=== PATIENT | female | born 1945 ===

== ENCOUNTER 2020-07-20 13:42 | Inpatient (IN) ==
[2020-07-20] MEDS ORDERED: niCARdipine INJ 25 MG in SODIUM CHLORIDE 0.9% 240 ML IV PRN (13:58)
[2020-07-20] MEDS ORDERED: cloNIDine 0.1 MG TABLET PO STA (14:17)
[2020-07-20 14:46] LABS: Basophils % 0.2 % (0.0-0.8); Hematocrit 37.2 VOL% (35.7-47.0); Hemoglobin 12.9 GM/DL (12.0-16.0); Immature Granulocytes % 1.3 %; Immature Granulocytes Absolute 0.22 #; Lymphocytes # 0.7 10*3/uL (1.4-4.0); Lymphocytes % 3.9 % (21.3-54.2); Mean Corpuscular HGB Conc 34.7 GM/DL (32-36); Mean Corpuscular Volume 84.9 FL (87-102); Mean Platelet Volume 11.4 FL (9.6-12.0); Neutrophils % 89.6 % (38.7-73.9); Platelet Count 132 T/CUMM (130-400); Red Blood Count 4.38 MC/CUMM (3.8-5.5); Red Cell Distribution Width 14.1 % (9.3-17.3); White Blood Count 17.5 T/CUMM (4-12)
[2020-07-20] MEDS ORDERED: ONDANSETRON 4 MG/2 ML VIAL IV PRN (14:55)
[2020-07-20] MEDS ORDERED: ALBUTEROL 2.5 MG/3 ML NEB RESP TX PRN (14:55)
[2020-07-20] MEDS ORDERED: AZITHROMYCIN INJ 500 MG in SODIUM CHLORIDE 0.9% 250 ML IV ONE (15:00)
[2020-07-20 15:21] LABS: INR 1.7; PT Patient Result 17.6 SECS (9.8-11.9)
[2020-07-20] MEDS ORDERED: niCARdipine 25 MG/10 ML VIAL IV ONE (15:53)
[2020-07-20 15:59] LABS: Band Neutrophils 1 % (0-10); Burr Cells 1+; Lymphocytes 4 % (20-55); Metamyelocytes 1 %; Microcytosis 1+; Segmented Neutrophils 93 % (50-85); Total Cells Counted 100; Toxic Granulation 1+
[2020-07-20 16:00] LABS: Platelet Estimate Decreased
[2020-07-20] MEDS: DEXAMETHASONE 4 MG/1 ML VIAL IV SCH (16:33)
[2020-07-20 16:42] LABS: Alanine Aminotransferase 33 U/L (13-56); Albumin 2.2 G/DL (3.4-5.0); Alkaline Phosphatase 178 U/L (45-117); Aspartate Amino Transferase 180 U/L (0-37); Blood Urea Nitrogen 52 MG/DL (7-18); Calcium 8.8 MG/DL (8.5-10.1); Estimated Glom Filtration Rate 25 ML/MIN; Ferritin 3215.4 ng/ml (8-252); Glucose 337 MG/DL (74-106); Osmolality,Calculated 303.5 MOS/KG (273-304); Total Protein 7.3 G/DL (6.4-8.3)
[2020-07-20] MEDS ORDERED: SODIUM BICARBONATE 50 MEQ/50 ML VIAL IV ONE (17:33)
[2020-07-20] MEDS ORDERED: guaiFENesin 200 MG/10 ML UDCUP PO PRN (17:54)
[2020-07-20] MEDS ORDERED: SODIUM CHLORIDE 0.9% 1,000 ML IV SCH (18:00)
[2020-07-20] MEDS: niCARdipine INJ 25 MG in SODIUM CHLORIDE 0.9% 240 ML IV PRN ×2 (18:12→23:05)
[2020-07-20] MEDS: SODIUM POLYSTYRENE SULFATE 15 GM/60 ML BOTTLE PO ONE ×2 (18:12→18:44)
[2020-07-20 18:18] LABS: ABG Base Excess -6.9 MMOL/L (-2.5-2.5); ABG HCO3 18.8 MMOL/L (20-26); ABG Oxygen Saturation 94.7 % (95-100); ABG PCO2 30.9 MM HG (35-48); ABG PO2 74.7 MM HG (80-95); ABG TCO2 15.4 MMOL/L (23-27)
[2020-07-20] MEDS ORDERED: SODIUM POLYSTYRENE SULFATE 15 GM/60 ML BOTTLE RECTAL ONE (19:36)
[2020-07-20] MEDS ORDERED: INSULIN GLARGINE 100 UNIT/ML SUBCUT SCH (21:00)
[2020-07-20] MEDS: ENOXAPARIN 40 MG/0.4 ML SYRINGE SUBCUT SCH (21:45)
[2020-07-20] MEDS: INSULIN LISPRO 100 UNIT/ML SUBCUT SCH (21:45)
[2020-07-20] MEDS: DOCUSATE SODIUM 100 MG CAPSULE PO SCH (22:00)
[2020-07-20] MEDS: carvediloL 6.25 MG TABLET PO SCH (23:10)
[2020-07-20] MEDS: ASCORBIC ACID 500 MG TABLET PO SCH (23:10)
[2020-07-20] MEDS: GABAPENTIN 100 MG CAPSULE PO SCH (23:10)
[2020-07-21 00:48] LABS: ABG Base Excess -6.5 MMOL/L (-2.5-2.5); ABG HCO3 19.1 MMOL/L (20-26); ABG Oxygen Saturation 93.2 % (95-100); ABG PH 7.385 (7.35-7.45); ABG PO2 67.3 MM HG (80-95); ABG TCO2 15.4 MMOL/L (23-27); Allen Test Positive; Pt O2 Delivery Device Other
[2020-07-21 03:54] LABS: Basophils % 0.2 % (0.0-0.8); Hematocrit 35.5 VOL% (35.7-47.0); Hemoglobin 11.8 GM/DL (12.0-16.0); Immature Granulocytes % 1.3 %; Immature Granulocytes Absolute 0.19 #; Lymphocytes # 0.6 10*3/uL (1.4-4.0); Lymphocytes % 4.3 % (21.3-54.2); Mean Corpuscular HGB Conc 33.2 GM/DL (32-36); Mean Corpuscular Volume 87.4 FL (87-102); Monocytes % 5.9 % (1.7-12.7); NRBC # 0.02 10*3/uL; Neutrophils % 88.3 % (38.7-73.9); Platelet Count 112 T/CUMM (130-400); Red Blood Count 4.06 MC/CUMM (3.8-5.5); Red Cell Distribution Width 14.6 % (9.3-17.3); White Blood Count 14.3 T/CUMM (4-12)
[2020-07-21 04:17] LABS: Albumin 2.3 G/DL (3.4-5.0); Bilirubin,Total 1.6 MG/DL (0.2-1.0); Calcium 8.4 MG/DL (8.5-10.1); Total Protein 6.1 G/DL (6.4-8.3)
[2020-07-21 04:25] LABS: ABG Base Excess -4.6 MMOL/L (-2.5-2.5); ABG HCO3 20.6 MMOL/L (20-26); ABG Oxygen Saturation 96.8 % (95-100); ABG PCO2 29.3 MM HG (35-48); ABG PH 7.415 (7.35-7.45); ABG PO2 84.5 MM HG (80-95); ABG TCO2 16.6 MMOL/L (23-27)
[2020-07-21 04:37] LABS: Burr Cells Slight; Hypochromasia Slight; Microcytosis Slight; Ovalocytes Slight; Platelet Estimate Decreased
[2020-07-21] MEDS: ZINC GLUCONATE 50 MG TABLET PO SCH (08:16)
[2020-07-21] MEDS: CHOLECALCIFEROL 1,000 UNIT TABLET PO SCH (08:16)
[2020-07-21] MEDS: OMEPRAZOLE ODT 20 MG TABLET PO SCH (08:16)
[2020-07-21] MEDS: DOCUSATE SODIUM 100 MG CAPSULE PO SCH ×2 (08:16→20:33)
[2020-07-21] MEDS: AZITHROMYCIN 250 MG TABLET PO SCH (08:16)
[2020-07-21] MEDS: CETIRIZINE 10 MG TABLET PO SCH (08:16)
[2020-07-21] MEDS: GABAPENTIN 100 MG CAPSULE PO SCH ×3 (08:16→20:33)
[2020-07-21] MEDS: FLUoxetine 20 MG CAPSULE PO SCH (08:16)
[2020-07-21] MEDS: carvediloL 6.25 MG TABLET PO SCH ×2 (08:16→20:33)
[2020-07-21] MEDS: ASCORBIC ACID 500 MG TABLET PO SCH ×2 (08:16→20:33)
[2020-07-21] MEDS: DEXAMETHASONE 4 MG/1 ML VIAL IV SCH (08:17)
[2020-07-21] MEDS: TOLTERODINE LA 2 MG CAPSULE PO SCH (09:46)
[2020-07-21] MEDS ORDERED: SODIUM CHLORIDE 0.9% 1,000 ML IV SCH (10:00)
[2020-07-21] MEDS: INSULIN LISPRO 100 UNIT/ML SUBCUT SCH ×4 (10:22→20:35)
[2020-07-21] MEDS: ZINC OXIDE PASTE 113 GM TUBE TOP SCH ×2 (10:56→20:33)
[2020-07-21] MEDS: SODIUM CHLORIDE 0.9% 1,000 ML IV SCH ×2 (11:47→20:22)
[2020-07-21 14:08] LABS: ABG Base Excess -5.6 MMOL/L (-2.5-2.5); ABG HCO3 19.4 MMOL/L (20-26); ABG Oxygen Saturation 83.9 % (95-100); ABG PCO2 36.2 MM HG (35-48); ABG PH 7.346 (7.35-7.45); ABG PO2 51.4 MM HG (80-95); ABG TCO2 20.5 MMOL/L (23-27)
[2020-07-21] MEDS ORDERED: SUCCINYLCHOLINE 200 MG/10 ML VIAL ONE (14:23)
[2020-07-21] MEDS ORDERED: ETOMIDATE 20 MG/10 ML VIAL IV ONE ×3 (14:23→14:36)
[2020-07-21] MEDS ORDERED: SUCCINYLCHOLINE 200 MG/10 ML VIAL IV ONE (14:36)
[2020-07-21 15:42] VITALS: BP 150/87
[2020-07-21 16:17] LABS: ABG Base Excess -6.3 MMOL/L (-2.5-2.5); ABG HCO3 18.9 MMOL/L (20-26); ABG Oxygen Saturation 72.3 % (95-100); ABG PCO2 42.3 MM HG (35-48); ABG PH 7.285 (7.35-7.45); ABG PO2 42.5 MM HG (80-95); ABG TCO2 18.5 MMOL/L (23-27)
[2020-07-21] MEDS ORDERED: GLUCAGON 1 MG VIAL IM PRN (17:15)
[2020-07-21] MEDS: fentaNYL INJ 1,250 MCG in SODIUM CHLORIDE 0.9% 225 ML IV PRN (20:27)
[2020-07-21] MEDS: ENOXAPARIN 40 MG/0.4 ML SYRINGE SUBCUT SCH (20:33)
[2020-07-21] MEDS: INSULIN GLARGINE 100 UNIT/ML SUBCUT SCH (20:33)
[2020-07-21] MEDS ORDERED: POTASSIUM CHLORIDE 20 MEQ/15 ML UDCUP NG ONE (21:24)
[2020-07-22] MEDS: INSULIN LISPRO 100 UNIT/ML SUBCUT SCH ×6 (00:05→22:22)
[2020-07-22] MEDS: SODIUM CHLORIDE 0.9% 1,000 ML IV SCH ×2 (03:35→04:26)
[2020-07-22 03:44] LABS: Allen Test Positive; Pt O2 Delivery Device Ventilator
[2020-07-22 03:45] LABS: ABG Base Excess -6.8 MMOL/L (-2.5-2.5); ABG HCO3 18.9 MMOL/L (20-26); ABG Oxygen Saturation 99.9 % (95-100); ABG PCO2 31.8 MM HG (35-48); ABG PH 7.356 (7.35-7.45); ABG TCO2 16.2 MMOL/L (23-27)
[2020-07-22 04:59] LABS: Basophils % 0.1 % (0.0-0.8); Hematocrit 32.5 VOL% (35.7-47.0); Hemoglobin 10.7 GM/DL (12.0-16.0); Immature Granulocytes % 1.7 %; Immature Granulocytes Absolute 0.29 #; Lymphocytes # 0.5 10*3/uL (1.4-4.0); Lymphocytes % 2.9 % (21.3-54.2); Mean Corpuscular HGB Conc 32.9 GM/DL (32-36); Mean Corpuscular Volume 88.8 FL (87-102); Monocytes % 5.8 % (1.7-12.7); NRBC # 0.03 10*3/uL; Neutrophils % 89.5 % (38.7-73.9); Platelet Count 105 T/CUMM (130-400); Red Blood Count 3.66 MC/CUMM (3.8-5.5); Red Cell Distribution Width 14.8 % (9.3-17.3); White Blood Count 17.4 T/CUMM (4-12)
[2020-07-22 05:07] LABS: Albumin 1.9 G/DL (3.4-5.0); Bilirubin,Total 0.9 MG/DL (0.2-1.0); Calcium 7.8 MG/DL (8.5-10.1); Osmolality,Calculated 328.7 MOS/KG (273-304); Total Protein 5.2 G/DL (6.4-8.3)
[2020-07-22 05:16] LABS: Band Neutrophils 2 % (0-10); Hypochromasia Slight; Lymphocytes 1 % (20-55); Segmented Neutrophils 96 % (50-85); Total Cells Counted 100
[2020-07-22 05:17] LABS: Acanthocytes Few; Microcytosis 1+; Platelet Estimate Decreased
[2020-07-22] MEDS: DOCUSATE SODIUM 100 MG CAPSULE PO SCH (08:41)
[2020-07-22] MEDS: MULTIVITAMIN (BEROCCA) TABLET PO SCH (08:41)
[2020-07-22] MEDS: CHOLECALCIFEROL 1,000 UNIT TABLET PO SCH (08:42)
[2020-07-22] MEDS: OMEPRAZOLE ODT 20 MG TABLET PO SCH (08:42)
[2020-07-22] MEDS: ASCORBIC ACID 500 MG TABLET PO SCH ×2 (08:42→22:20)
[2020-07-22] MEDS: ZINC GLUCONATE 50 MG TABLET PO SCH (08:42)
[2020-07-22] MEDS: FLUoxetine 20 MG CAPSULE PO SCH (08:43)
[2020-07-22] MEDS: AZITHROMYCIN 250 MG TABLET PO SCH (08:43)
[2020-07-22] MEDS: CETIRIZINE 10 MG TABLET PO SCH (08:43)
[2020-07-22] MEDS: GABAPENTIN 100 MG CAPSULE PO SCH ×3 (08:43→22:20)
[2020-07-22] MEDS: carvediloL 6.25 MG TABLET PO SCH ×2 (08:43→22:20)
[2020-07-22] MEDS: TOLTERODINE LA 2 MG CAPSULE PO SCH (08:44)
[2020-07-22] MEDS: DEXAMETHASONE 4 MG/1 ML VIAL IV SCH (08:44)
[2020-07-22] MEDS: ZINC OXIDE PASTE 113 GM TUBE TOP SCH ×2 (08:45→22:23)
[2020-07-22] MEDS: SODIUM BICARB INJ 50 MEQ in DEXTROSE 5% 1,000 ML IV SCH ×2 (11:59→22:38)
[2020-07-22] MEDS ORDERED: LORazepam 2 MG/1 ML VIAL IV ONE (20:56)
[2020-07-22] MEDS: DOCUSATE SODIUM 100 MG/10 ML UDCUP PO SCH (22:20)
[2020-07-22] MEDS: ALPRAZolam 0.25 MG TABLET PO PRN (22:20)
[2020-07-22] MEDS: ENOXAPARIN 40 MG/0.4 ML SYRINGE SUBCUT SCH (22:21)
[2020-07-22] MEDS: INSULIN GLARGINE 100 UNIT/ML SUBCUT SCH (22:21)
[2020-07-22] MEDS: fentaNYL INJ 1,250 MCG in SODIUM CHLORIDE 0.9% 225 ML IV PRN (22:38)
[2020-07-23] MEDS: INSULIN LISPRO 100 UNIT/ML SUBCUT SCH ×7 (01:01→23:35)
[2020-07-23 04:29] LABS: Allen Test Positive; Pt O2 Delivery Device Ventilator
[2020-07-23 04:30] LABS: ABG Base Excess -6.6 MMOL/L (-2.5-2.5); ABG HCO3 19.9 MMOL/L (20-26); ABG Oxygen Saturation 98.9 % (95-100); ABG PCO2 44.2 MM HG (35-48); ABG PH 7.272 (7.35-7.45); ABG PO2 337.3 MM HG (80-95); ABG TCO2 21.3 MMOL/L (23-27)
[2020-07-23 04:52] LABS: Basophils % 0.2 % (0.0-0.8); Hematocrit 32.4 VOL% (35.7-47.0); Hemoglobin 10.5 GM/DL (12.0-16.0); Immature Granulocytes % 3.3 %; Immature Granulocytes Absolute 0.63 #; Lymphocytes # 0.5 10*3/uL (1.4-4.0); Lymphocytes % 2.6 % (21.3-54.2); Mean Corpuscular HGB Conc 32.4 GM/DL (32-36); Mean Corpuscular Volume 89.5 FL (87-102); Monocytes % 4.8 % (1.7-12.7); NRBC # 0.02 10*3/uL; Neutrophils % 89.1 % (38.7-73.9); Platelet Count 97 T/CUMM (130-400); Red Blood Count 3.62 MC/CUMM (3.8-5.5); White Blood Count 18.8 T/CUMM (4-12)
[2020-07-23 05:17] LABS: Hypochromasia 1+; Lymphocytes 3 % (20-55); Segmented Neutrophils 93 % (50-85); Total Cells Counted 100
[2020-07-23 05:18] LABS: Acanthocytes Few; Microcytosis 1+; Platelet Estimate Decreased
[2020-07-23 05:24] LABS: Albumin 1.7 G/DL (3.4-5.0); Bilirubin,Total 0.4 MG/DL (0.2-1.0); Calcium 8.1 MG/DL (8.5-10.1); Osmolality,Calculated 327.7 MOS/KG (273-304); Total Protein 5.3 G/DL (6.4-8.3)
[2020-07-23] MEDS: DEXAMETHASONE 4 MG/1 ML VIAL IV SCH (08:30)
[2020-07-23] MEDS: ASCORBIC ACID 500 MG TABLET PO SCH ×2 (08:31→21:35)
[2020-07-23] MEDS: ALPRAZolam 0.25 MG TABLET PO PRN ×2 (08:31→21:42)
[2020-07-23] MEDS: carvediloL 6.25 MG TABLET PO SCH ×2 (08:31→21:38)
[2020-07-23] MEDS: CHOLECALCIFEROL 1,000 UNIT TABLET PO SCH (08:31)
[2020-07-23] MEDS: ZINC GLUCONATE 50 MG TABLET PO SCH (08:31)
[2020-07-23] MEDS: MULTIVITAMIN (BEROCCA) TABLET PO SCH (08:31)
[2020-07-23] MEDS: GABAPENTIN 100 MG CAPSULE PO SCH ×3 (08:31→21:35)
[2020-07-23] MEDS: CETIRIZINE 10 MG TABLET PO SCH (08:31)
[2020-07-23] MEDS: DOCUSATE SODIUM 100 MG/10 ML UDCUP PO SCH ×2 (08:31→21:35)
[2020-07-23] MEDS: FLUoxetine 20 MG CAPSULE PO SCH (08:32)
[2020-07-23] MEDS: OMEPRAZOLE ODT 20 MG TABLET PO SCH (08:32)
[2020-07-23] MEDS: AZITHROMYCIN 250 MG TABLET PO SCH (08:32)
[2020-07-23] MEDS: TOLTERODINE LA 2 MG CAPSULE PO SCH (08:33)
[2020-07-23] MEDS: fentaNYL INJ 1,250 MCG in SODIUM CHLORIDE 0.9% 225 ML IV PRN ×2 (09:50→23:31)
[2020-07-23] MEDS: SODIUM BICARB INJ 50 MEQ in DEXTROSE 5% 1,000 ML IV SCH ×2 (10:02→21:54)
[2020-07-23] MEDS: ZINC OXIDE PASTE 113 GM TUBE TOP SCH ×2 (10:06→21:36)
[2020-07-23] MEDS: ALBUMIN 25% 25 GM in PREMIX 1 EACH IV SCH (19:30)
[2020-07-23] MEDS: ENOXAPARIN 40 MG/0.4 ML SYRINGE SUBCUT SCH (21:35)
[2020-07-23] MEDS: INSULIN GLARGINE 100 UNIT/ML SUBCUT SCH (21:36)
[2020-07-24] MEDS: ALBUMIN 25% 25 GM in PREMIX 1 EACH IV SCH ×2 (02:31→14:05)
[2020-07-24] MEDS ORDERED: SODIUM CHLORIDE 0.9% 500 ML IV ONE (02:53)
[2020-07-24] MEDS ORDERED: PHENYLEPHRINE DRIP 40 MG/250 ML PREMIX IV ONE (03:34)
[2020-07-24] MEDS: PHENYLEPHRINE DRIP 40 MG/250 ML PREMIX IV PRN ×2 (03:40→10:16)
[2020-07-24 04:15] LABS: Allen Test Positive; Pt O2 Delivery Device Ventilator
[2020-07-24 04:17] LABS: ABG HCO3 19.5 MMOL/L (20-26); ABG Oxygen Saturation 99.3 % (95-100); ABG PCO2 51.7 MM HG (35-48); ABG PH 7.231 (7.35-7.45); ABG TCO2 20.4 MMOL/L (23-27)
[2020-07-24 04:56] LABS: Basophils # 0.1 10*3/uL (0.0-0.2); Basophils % 0.2 % (0.0-0.8); Hematocrit 29.9 VOL% (35.7-47.0); Hemoglobin 9.9 GM/DL (12.0-16.0); Immature Granulocytes % 5.9 %; Immature Granulocytes Absolute 1.41 #; Mean Corpuscular HGB Conc 33.1 GM/DL (32-36); Mean Corpuscular Volume 90.1 FL (87-102); Monocytes % 2.5 % (1.7-12.7); NRBC # 0.04 10*3/uL; Neutrophils % 87.4 % (38.7-73.9); Platelet Count 92 T/CUMM (130-400); Red Blood Count 3.32 MC/CUMM (3.8-5.5); Red Cell Distribution Width 14.8 % (9.3-17.3)
[2020-07-24 05:21] LABS: Band Neutrophils 2 % (0-10); Hypochromasia Slight; Lymphocytes 5 % (20-55); Platelet Estimate Decreased; Segmented Neutrophils 93 % (50-85); Total Cells Counted 100
[2020-07-24] MEDS: INSULIN LISPRO 100 UNIT/ML SUBCUT SCH ×5 (05:27→21:35)
[2020-07-24] MEDS: SODIUM BICARB INJ 50 MEQ in DEXTROSE 5% 1,000 ML IV SCH ×2 (05:30→10:17)
[2020-07-24 05:34] LABS: Calcium 7.6 MG/DL (8.5-10.1); Osmolality,Calculated 305.7 MOS/KG (273-304)
[2020-07-24] MEDS: DEXAMETHASONE 4 MG/1 ML VIAL IV SCH (08:16)
[2020-07-24] MEDS: DOCUSATE SODIUM 100 MG/10 ML UDCUP PO SCH ×2 (08:17→21:36)
[2020-07-24] MEDS: GABAPENTIN 100 MG CAPSULE PO SCH ×3 (08:17→21:36)
[2020-07-24] MEDS: FLUoxetine 20 MG CAPSULE PO SCH (08:17)
[2020-07-24] MEDS: ZINC GLUCONATE 50 MG TABLET PO SCH (08:17)
[2020-07-24] MEDS: CHOLECALCIFEROL 1,000 UNIT TABLET PO SCH (08:17)
[2020-07-24] MEDS: AZITHROMYCIN 250 MG TABLET PO SCH (08:17)
[2020-07-24] MEDS: ASCORBIC ACID 500 MG TABLET PO SCH ×2 (08:18→21:36)
[2020-07-24] MEDS: OMEPRAZOLE ODT 20 MG TABLET PO SCH (08:18)
[2020-07-24] MEDS: ZINC OXIDE PASTE 113 GM TUBE TOP SCH ×2 (08:18→21:36)
[2020-07-24] MEDS: CETIRIZINE 10 MG TABLET PO SCH (08:18)
[2020-07-24] MEDS: MULTIVITAMIN (BEROCCA) TABLET PO SCH (08:18)
[2020-07-24] MEDS ORDERED: MAGNESIUM SULF RIDER 1 GM in PREMIX 1 EACH IV ONE (09:30)
[2020-07-24] MEDS ORDERED: POTASSIUM CHLORIDE 20 MEQ/15 ML UDCUP PER TUBE ONE (09:32)
[2020-07-24] MEDS: TOLTERODINE LA 2 MG CAPSULE PO SCH (09:36)
[2020-07-24] MEDS: carvediloL 6.25 MG TABLET PO SCH ×2 (10:16→21:36)
[2020-07-24] MEDS ORDERED: PHENYLEPHRINE INJ 160 MG in SODIUM CHLORIDE 0.9% 234 ML IV PRN (12:58)
[2020-07-24] MEDS ORDERED: NOREPINEPHRINE 16 MG in SODIUM CHLORIDE 0.9% 234 ML IV PRN (15:02)
[2020-07-24] MEDS ORDERED: NOREPINEPHRINE 4 MG/4 ML VIAL IV ONE (15:04)
[2020-07-24] MEDS ORDERED: EPINEPHrine 1 MG/ML VIAL ONE (15:10)
[2020-07-24] MEDS ORDERED: SODIUM BICARBONATE 50 MEQ/50 ML VIAL IV ONE ×2 (15:12)
[2020-07-24] MEDS ORDERED: ENOXAPARIN 30 MG/0.3 ML SYRINGE SUBCUT SCH (21:00)
[2020-07-24] MEDS: INSULIN GLARGINE 100 UNIT/ML SUBCUT SCH (21:36)
[2020-07-25] MEDS: fentaNYL INJ 1,250 MCG in SODIUM CHLORIDE 0.9% 225 ML IV PRN (00:09)
[2020-07-25] MEDS: INSULIN LISPRO 100 UNIT/ML SUBCUT SCH ×5 (00:54→17:28)
[2020-07-25] MEDS: ALBUMIN 25% 25 GM in PREMIX 1 EACH IV SCH ×3 (00:55→17:16)
[2020-07-25 05:02] LABS: Basophils % 0.1 % (0.0-0.8); Eosinophils # 0.2 10*3/uL (0.0-0.87); Eosinophils % 0.9 % (0.00-10.9); Hematocrit 25.8 VOL% (35.7-47.0); Hemoglobin 8.6 GM/DL (12.0-16.0); Immature Granulocytes % 3.6 %; Immature Granulocytes Absolute 0.74 #; Lymphocytes # 1.1 10*3/uL (1.4-4.0); Lymphocytes % 5.5 % (21.3-54.2); Mean Corpuscular HGB Conc 33.3 GM/DL (32-36); Mean Corpuscular Volume 86.6 FL (87-102); Mean Platelet Volume 13.2 FL (9.6-12.0); NRBC # 0.03 10*3/uL; Neutrophils % 88.9 % (38.7-73.9); Red Blood Count 2.98 MC/CUMM (3.8-5.5); Red Cell Distribution Width 14.5 % (9.3-17.3); White Blood Count 20.6 T/CUMM (4-12)
[2020-07-25 05:03] LABS: ABG Base Excess -3.8 MMOL/L (-2.5-2.5); ABG HCO3 21.1 MMOL/L (20-26); ABG Oxygen Saturation 88.9 % (95-100); ABG PCO2 47.4 MM HG (35-48); ABG TCO2 21.4 MMOL/L (23-27); Allen Test Positive; Pt O2 Delivery Device Ventilator
[2020-07-25 05:08] LABS: Platelet Count 67 T/CUMM (130-400)
[2020-07-25 05:19] LABS: Calcium 7.4 MG/DL (8.5-10.1); Osmolality,Calculated 290.4 MOS/KG (273-304)
[2020-07-25 05:20] LABS: Band Neutrophils 4 % (0-10); Eosinophils 1 % (0-10); Hypochromasia 1+; Lymphocytes 6 % (20-55); Segmented Neutrophils 89 % (50-85); Total Cells Counted 100
[2020-07-25 05:21] LABS: Acanthocytes Few; Microcytosis 1+; Ovalocytes Slight
[2020-07-25 05:22] LABS: Platelet Estimate Decreased
[2020-07-25] MEDS: DEXTROSE 50% 25 GM/50 ML VIAL IV PRN ×3 (07:29→12:35)
[2020-07-25] MEDS: TOLTERODINE LA 2 MG CAPSULE PO SCH (09:07)
[2020-07-25] MEDS: DOCUSATE SODIUM 100 MG/10 ML UDCUP PO SCH ×2 (09:36→20:10)
[2020-07-25] MEDS: OMEPRAZOLE ODT 20 MG TABLET PO SCH (09:36)
[2020-07-25] MEDS: FLUoxetine 20 MG CAPSULE PO SCH (09:36)
[2020-07-25] MEDS: ASCORBIC ACID 500 MG TABLET PO SCH ×2 (09:36→20:09)
[2020-07-25] MEDS: CHOLECALCIFEROL 1,000 UNIT TABLET PO SCH (09:36)
[2020-07-25] MEDS: MULTIVITAMIN (BEROCCA) TABLET PO SCH (09:36)
[2020-07-25] MEDS: ZINC GLUCONATE 50 MG TABLET PO SCH (09:36)
[2020-07-25] MEDS: carvediloL 6.25 MG TABLET PO SCH ×2 (09:37→09:49)
[2020-07-25] MEDS: GABAPENTIN 100 MG CAPSULE PO SCH ×3 (09:37→20:10)
[2020-07-25] MEDS: CETIRIZINE 10 MG TABLET PO SCH (09:37)
[2020-07-25] MEDS: DEXAMETHASONE 4 MG/1 ML VIAL IV SCH (09:37)
[2020-07-25] MEDS: ZINC OXIDE PASTE 113 GM TUBE TOP SCH ×2 (09:38→20:10)
[2020-07-25] MEDS ORDERED: POTASSIUM CHLORIDE 20 MEQ/15 ML UDCUP PER TUBE PRN (09:49)
[2020-07-25] MEDS ORDERED: SODIUM BICARBONATE 50 MEQ/50 ML VIAL IV ONE ×2 (10:13→10:15)
[2020-07-25] MEDS ORDERED: DIGOXIN 0.5 MG/2 ML AMP IV ONE ×2 (10:30→11:45)
[2020-07-25] MEDS: ROCURONIUM 500 MG in SODIUM CHLORIDE 0.9% 500 ML IV PRN (10:51)
[2020-07-25] MEDS ORDERED: LEVOFLOXACIN INJ 500 MG in PREMIX 1 EACH IV SCH (11:00)
[2020-07-25] MEDS: cefTRIAXone 1,000 MG in SYRINGE 1 EACH IV SCH (11:57)
[2020-07-25] MEDS ORDERED: DEXTROSE 10% 1,000 ML IV SCH (13:00)
[2020-07-25] MEDS ORDERED: DEXTROSE 10% 250 ML BAG IV SCH (13:00)
[2020-07-25] MEDS: DEXTROSE 10% 500 ML IV SCH (13:13)
[2020-07-25] MEDS: SODIUM BICARBONATE 650 MG TABLET PO SCH ×2 (16:58→20:10)
[2020-07-26] MEDS: ALBUMIN 25% 25 GM in PREMIX 1 EACH IV SCH ×2 (00:38→08:06)
[2020-07-26] MEDS: carvediloL 6.25 MG TABLET PO SCH ×2 (00:38→09:33)
[2020-07-26] MEDS: INSULIN LISPRO 100 UNIT/ML SUBCUT SCH ×4 (00:39→12:00)
[2020-07-26] MEDS: DEXTROSE 10% 500 ML IV SCH (00:40)
[2020-07-26] MEDS: fentaNYL INJ 1,250 MCG in SODIUM CHLORIDE 0.9% 225 ML IV PRN (00:43)
[2020-07-26] MEDS: ROCURONIUM 500 MG in SODIUM CHLORIDE 0.9% 500 ML IV PRN (03:00)
[2020-07-26 04:51] LABS: Basophils % 0.1 % (0.0-0.8); Hematocrit 22.5 VOL% (35.7-47.0); Hemoglobin 7.6 GM/DL (12.0-16.0); Immature Granulocytes % 2.8 %; Immature Granulocytes Absolute 0.66 #; Lymphocytes # 0.4 10*3/uL (1.4-4.0); Lymphocytes % 1.9 % (21.3-54.2); Mean Corpuscular HGB Conc 33.8 GM/DL (32-36); Mean Corpuscular Volume 86.9 FL (87-102); Monocytes % 2.1 % (1.7-12.7); Neutrophils % 93.1 % (38.7-73.9); Red Blood Count 2.59 MC/CUMM (3.8-5.5); Red Cell Distribution Width 14.4 % (9.3-17.3); White Blood Count 23.5 T/CUMM (4-12)
[2020-07-26 04:55] LABS: Platelet Count 53 T/CUMM (130-400)
[2020-07-26 05:02] LABS: ABG Base Excess -5.3 MMOL/L (-2.5-2.5); ABG HCO3 19.2 MMOL/L (20-26); ABG Oxygen Saturation 98.4 % (95-100); ABG PCO2 32.6 MM HG (35-48); ABG PH 7.387 (7.35-7.45); ABG PO2 158.4 MM HG (80-95); ABG TCO2 20.2 MMOL/L (23-27)
[2020-07-26 05:15] LABS: Band Neutrophils 2 % (0-10); Calcium 7.8 MG/DL (8.5-10.1); Hypochromasia Slight; Lymphocytes 2 % (20-55); Osmolality,Calculated 288.8 MOS/KG (273-304); Platelet Estimate Decreased; Segmented Neutrophils 95 % (50-85); Total Cells Counted 100
[2020-07-26] MEDS: FLUoxetine 20 MG CAPSULE PO SCH (08:12)
[2020-07-26] MEDS: ASCORBIC ACID 500 MG TABLET PO SCH (08:12)
[2020-07-26] MEDS: CHOLECALCIFEROL 1,000 UNIT TABLET PO SCH (08:12)
[2020-07-26] MEDS: ZINC GLUCONATE 50 MG TABLET PO SCH (08:12)
[2020-07-26] MEDS: GABAPENTIN 100 MG CAPSULE PO SCH ×2 (08:12→12:00)
[2020-07-26] MEDS: DOCUSATE SODIUM 100 MG/10 ML UDCUP PO SCH (08:13)
[2020-07-26] MEDS: CETIRIZINE 10 MG TABLET PO SCH (08:13)
[2020-07-26] MEDS: SODIUM BICARBONATE 650 MG TABLET PO SCH (08:13)
[2020-07-26] MEDS: OMEPRAZOLE ODT 20 MG TABLET PO SCH (08:13)
[2020-07-26] MEDS: MULTIVITAMIN (BEROCCA) TABLET PO SCH (08:13)
[2020-07-26] MEDS: METOCLOPRAMIDE 10 MG/2 ML VIAL IV SCH ×2 (08:14→12:00)
[2020-07-26] MEDS: DEXAMETHASONE 4 MG/1 ML VIAL IV SCH (08:16)
[2020-07-26] MEDS: ZINC OXIDE PASTE 113 GM TUBE TOP SCH (08:16)
[2020-07-26] MEDS ORDERED: SODIUM BICARB INJ 100 MEQ in DEXTROSE 5% 1,000 ML IV SCH (10:00)
[2020-07-26] MEDS ORDERED: SODIUM CHLORIDE 0.9% 500 ML IV ONE (11:00)
[2020-07-26] MEDS ORDERED: EPINEPHrine 1 MG/ML VIAL ONE (11:00)
[2020-07-26] MEDS ORDERED: PHENYLEPHRINE DRIP 40 MG/250 ML PREMIX IV ONE (11:00)
[2020-07-26] MEDS ORDERED: PHENYLEPHRINE DRIP 40 MG/250 ML PREMIX IV PRN (11:01)
[2020-07-26] MEDS ORDERED: EPINEPHrine 1 MG/10 ML SYRINGE ONE ×2 (11:02→11:20)
[2020-07-26] MEDS ORDERED: CALCIUM CHLORIDE 1,000 MG/10 ML SYRINGE IV ONE (11:02)
[2020-07-26] MEDS ORDERED: SODIUM BICARBONATE 50 MEQ/50 ML SYRINGE IV ONE ×2 (11:02→11:20)
[2020-07-26 11:20] LABS: ABG Base Excess -13.4 MMOL/L (-2.5-2.5); ABG HCO3 14.8 MMOL/L (20-26); ABG Oxygen Saturation 73.2 % (95-100); ABG PO2 50.5 MM HG (80-95); ABG TCO2 16.2 MMOL/L (23-27)
[2020-07-26 11:21] LABS: ABG PH 7.135 (7.35-7.45)
[2020-07-26 11:39] LABS: Basophils % 0.1 % (0.0-0.8); Eosinophils % 0.1 % (0.00-10.9); Hematocrit 23.5 VOL% (35.7-47.0); Hemoglobin 7.6 GM/DL (12.0-16.0); Immature Granulocytes % 1.6 %; Immature Granulocytes Absolute 0.34 #; Lymphocytes # 0.6 10*3/uL (1.4-4.0); Lymphocytes % 2.9 % (21.3-54.2); Mean Corpuscular HGB Conc 32.3 GM/DL (32-36); Mean Corpuscular Volume 89.4 FL (87-102); Mean Platelet Volume 13.7 FL (9.6-12.0); Monocytes % 1.5 % (1.7-12.7); Neutrophils % 93.8 % (38.7-73.9); Red Blood Count 2.63 MC/CUMM (3.8-5.5); Red Cell Distribution Width 14.6 % (9.3-17.3); White Blood Count 20.7 T/CUMM (4-12)
[2020-07-26 11:41] LABS: Platelet Count 56 T/CUMM (130-400)
[2020-07-26 11:54] LABS: Albumin 2.8 G/DL (3.4-5.0); Bilirubin,Total 1.8 MG/DL (0.2-1.0); Calcium 7.9 MG/DL (8.5-10.1); Osmolality,Calculated 287.2 MOS/KG (273-304); Total Protein 5.4 G/DL (6.4-8.3)
[2020-07-26] MEDS: cefTRIAXone 1,000 MG in SYRINGE 1 EACH IV SCH (12:00)
[2020-07-26 12:12] LABS: Band Neutrophils 2 % (0-10); Lymphocytes 2 % (20-55); Segmented Neutrophils 95 % (50-85); Total Cells Counted 100
[2020-07-26 12:13] LABS: Acanthocytes Few; Hypochromasia Slight; Microcytosis 1+; Ovalocytes Slight
[2020-07-26 12:14] LABS: Platelet Estimate Decreased; Schistocytes Slight
== END 2020-07-26 12:00 | disposition expired | DRG 870 ==
LOC: EDUNIT# → EDBD → N.ED 13:42 → N.EDINP 14:55 → N.CC 17:14
PROVIDERS: ADMIT Internal Medicine; ATTEND Internal Medicine